=== PATIENT | female | born 1960 | race Caucasian/White ===

== ENCOUNTER 2017-05-06 10:33 | Emergency (ER) | payer SELFPAY ==
[2017-05-06] MEDS ORDERED: MORPHINE SULFATE 5 MG/ML PFS IVP ONE (10:38)
[2017-05-06] MEDS ORDERED: SODIUM CHLORIDE 0.9% 500 ML IV ONE (10:38)
[2017-05-06] MEDS ORDERED: METHYLPREDNISOLONE PF 125MG/VIAL IVP ONE (10:38)
[2017-05-06] MEDS ORDERED: DIAZEPAM 5 MG/1 ML TUBX IVP ONE (10:39)
--- NOTE | 2017-05-06 10:45 | Emergency Department Record ---
History of Present Illness - General Chief Complaint: Back Pain/Injury Stated Complaint: SEVERE BACK PAIN/DIF WALKING Time Seen by Provider: 05/06/17 10:38 Source: Patient, Family Mode of Arrival: Ambulatory Limitations: No limitations - History of Present Illness Initial Comments: 57 yo female with a history of sciatica since July presents with increased low back pain for a week. She reports she fell on black ice then and was treated in [place]. She denies and fractures. She did have and MRI. Three weeks ago she began to have increased pain after travel. The pain has increased this last week. The pain radiates down the left leg mostly in the left thigh. She has pain with any ROM. She denies bowel or bladder symptoms changes. MD Complaint: Back pain, Back injury -: Week(s) Place: Home Radiation: Left leg Severity: Severe Quality: Aching, Sharp Consistency: Constant Improves With: None Worsens With: None Context: Other (History of sciatica) - Related Data Previous Rx's Medication Instructions Recorded Cyclobenzaprine HCl [Flexeril] 10 mg PO TID #30 tablet 05/06/17 Hydrocodone/Acetaminophen [[place] 1 each PO Q8H #18 tablet 05/06/17 5-325 Tablet] Methylprednisolone [Medrol Dose 4 mg PO DAILY #1 tab.ds.pk 05/06/17 Pack] Review of Systems Constitutional: Denies: Chills, Fever, Malaise, Weakness Eyes: Denies: Eye discharge, Eye pain, Photophobia, Vision change ENT: Denies: Congestion, Throat pain Respiratory: Denies: Cough, Dyspnea, Hemoptysis, Stridor, Wheezes Cardiovascular: Denies: Chest pain, Palpitations, Syncope Endocrine: Denies: Fatigue, Polydipsia, Polyuria Gastrointestinal: Denies: Abdominal pain, Diarrhea, Nausea, Vomiting Genitourinary: Denies: Dysuria, Incontinence, Retention Musculoskeletal: Reports: As per HPI, Back pain Skin: Denies: Bruising, Change in color, Rash Neurological: Reports: Abnormal gait, Weakness. Denies: Confusion, Headache, Numbness Psychiatric: Denies: Anxiety Hematological/Lymphatic: Denies: Blood Clots, Easy bleeding, Easy bruising, Swollen glands Physical Exam - General General Appearance: Alert, Oriented x3, Cooperative, No acute distress Limitations: No limitations - Head Head exam: Atraumatic, Normocephalic, Normal inspection - Eye Eye exam: Normal appearance. negative: Conjunctival injection, Periorbital swelling, Scleral icterus - ENT ENT exam: Normal exam, Mucous membranes moist Ear exam: Normal external inspection Nasal Exam: Normal inspection Mouth exam: Normal external inspection - Neck Neck exam: Normal inspection, Full ROM. negative: Tenderness - Respiratory Respiratory exam: Normal lung sounds bilaterally. negative: Respiratory distress, Rhonchi, Stridor, Wheezes - Cardiovascular Cardiovascular Exam: Regular rate, Normal rhythm, Normal heart sounds Peripheral Pulses: 2+: Dorsalis Pedis (L) - GI/Abdominal GI/Abdominal exam: Soft. negative: Tenderness - Rectal Rectal exam: Deferred - exam: Deferred - Extremities Extremities exam: Normal inspection. negative: Calf tenderness, Full ROM (Pain with straight leg raise), Joint swelling, Normal capillary refill, Pedal edema, Tenderness Image of Full Body: 1 - tender to palpation - Back Back exam: Reports: Normal inspection, CVA tenderness (L), Muscle spasm, Paraspinal tenderness, Tenderness, Vertebral tenderness. Denies: Full ROM, Rash noted - Neurological Neurological exam: Alert, Normal gait, Oriented X3, Reflexes normal, Other ( Foot flexion and extension intact, EHL intact, pain wtih leg raise). negative: Altered, Motor sensory deficit - Psychiatric Psychiatric exam: Normal affect, Normal mood - Skin Skin exam: Dry, Intact, Normal color, Warm Course - Reevaluation(s) Reevaluation #1: 05/06/17 10:47 MRI 09/18/16 [facility]: Mild disc disease L4-5, L5-S1 mild to moderate R neural foraminal narrowing, unchanged from prior, No central cantal stenosis with in the canal 05/06/17 11:22 No acute changes on the labs 05/06/17 12:49 On recheck the patient still has pain but she has good range of motion, motor is intact, no neuro clinical finding. She will be sent home with supportive care i recommended follow up with her PCP in [place] as well as pursue a doctor in [place] if she is moving her permanently. Medical Decision Making - Lab Data Result diagrams: 05/06/17 10:56 05/06/17 10:56 Disposition Disposition: Discharge Clinical Impression: Sciatica Qualifiers: Laterality: left Qualified Code(s): M54.32 - Sciatica, left side Disposition: Home, Self-Care Condition: (1) Good Instructions: Sciatica (ED) Additional Instructions: Rest and avoid over exertion Call your doctor in [place] for close follow up until you get a doctor in [place] Return or be seen if worse, weakness, numb, or any new concerns Prescriptions: Cyclobenzaprine HCl [Flexeril] 10 mg PO TID #30 tablet Hydrocodone/Acetaminophen [[place] 5-325 Tablet] 1 each PO Q8H #18 tablet Methylprednisolone [Medrol Dose Pack] 4 mg PO DAILY #1 tab.ds.pk Forms: Patient Portal Access Time of Disposition: 12:53 Quality - Quality Measures Quality Measures: N/A - Blood Pressure Screening Does Patient Have Any of the Following: No Blood Pressure Classification: Hypertensive Reading Systolic Measurement: 146 Diastolic Measurement: 92 Screening for High Blood Pressure: < Pre-Hypertensive BP, F/U Documented > [ G8950] Pre-Hypertensive Follow-up Interventions: Referral to alternative/primary care provider.
[2017-05-06 11:03] LABS: BASO % 0.3 % (0-6); EOS % 1.1 % (0-6); HEMATOCRIT 41.2 % (35.0-47.0); HEMOGLOBIN 14.3 gm/dl (11.6-16.0); LYMPH % 26.6 % (16-45); MEAN CELL VOLUME 90.2 fl (81-97); MEAN CORPUSCULAR HEMOGLOBIN 31.3 pg (27-33); MEAN CORPUSCULAR HGB CONC 34.7 g/dl (32-36); MEAN PLATELET VOLUME 11.2 fl (7.4-10.4); PLATELET COUNT 285 K/uL (130-400); RED BLOOD COUNT 4.57 M/uL (3.80-5.40); RED CELL DISTRIBUTION WIDTH 13.2 % (11.5-14.5); WHITE BLOOD COUNT W/O DIFF 9.2 K/uL (4.2-12.2)
[2017-05-06 11:15] LABS: BLOOD UREA NITROGEN 13 mg/dL (6-20); CREATININE 0.5 mg/dL (0.5-0.9); EST GLOMERULAR FILTRATION RATE > 60 mL/min; GLUCOSE,RANDOM 125 mg/dL (74-109)
[2017-05-06] MEDS ORDERED: ACETAMINOPHEN 1,000 MG/100 ML BTL IVPB ONE (11:39)
== END 2017-05-06 13:29 | disposition home or self-care (01) ==
LOC: ER 10:33
DX: M54.42 Lumbago with sciatica, left side (principal)
CPT/HCPCS: 99284 ×2; 96365; 96375; 85025; 80048; J2270; J2930; J3360

== ENCOUNTER 2017-07-03 13:35 | Emergency (ER) | payer MEDICAID ==
[2017-07-03] MEDS ORDERED: TOPICAL LIDOCAINE W/ EPI 5 ML TOP ONE (13:56)
--- NOTE | 2017-07-03 13:58 | Emergency Department Record ---
History of Present Illness - General Chief complaint: ENT Stated complaint: NOSEBLEED Time Seen by Provider: 07/03/17 13:56 Source: Patient, Family, Old records reviewed Limitations: No limitations - History of Present Illness Initial comments: 57 yo female presents with a nose bleed. The patient developed right nostril bleeding at 7am. The bleeding returned 30 minutes ago. No blood thinners. No history of significant nose bleeds in the past. No other recent illnesses. MD complaint: Epistaxis -: Minutes(s) Severity: Mild Consistency: Intermittent Improves with: None Worsens with: None Context-Epistaxis: Other (No history of the same) - Related Data Home Medications Medication Instructions Recorded Confirmed Last Taken Cholecalciferol (Vitamin D3) 50,000 unit PO WEEKLY 07/03/17 07/03/17 07/01/17 [Vitamin D] Allergies Allergy/AdvReac Type Severity Reaction Status Date / Time No Known Drug Allergies Allergy Verified 07/03/17 14:01 Review of Systems Constitutional: Denies: Chills, Fever, Malaise, Weakness Eyes: Denies: Eye discharge, Eye pain, Photophobia, Vision change ENT: Reports: Epistaxis. Denies: Congestion, Ear pain Respiratory: Denies: Cough, Dyspnea, Hemoptysis, Stridor, Wheezes Cardiovascular: Denies: Chest pain, Palpitations, Syncope Endocrine: Denies: Fatigue Gastrointestinal: Denies: Abdominal pain, Diarrhea, Nausea, Vomiting Genitourinary: Denies: Dysuria, Urgency Musculoskeletal: Denies: Arthralgia, Back pain, Joint swelling, Myalgia Skin: Denies: Bruising, Change in color, Rash Neurological: Denies: Headache, Numbness, Weakness Psychiatric: Denies: Anxiety Hematological/Lymphatic: Denies: Blood Clots, Easy bleeding, Easy bruising, Swollen glands Past Medical History - SOCIAL HISTORY Smoking Status: Never smoker Drug Use: None - RESPIRATORY Hx Respiratory Disorders: No - CARDIOVASCULAR Hx Cardio Disorders: No - NEURO Hx Neuro Disorders: No - GI Hx GI Disorders: No - Hx Genitourinary Disorders: No - ENDOCRINE Hx Endocrine Disorders: No - MUSCULOSKELETAL Hx Musculoskeletal Disorders: Yes Hx Back Injury: Yes - PSYCH Hx Psych Problems: No - HEMATOLOGY/ONCOLOGY Hx Hematology/Oncology Disorders: No Physical Exam - General General Appearance: Alert, Oriented x3, Cooperative, No acute distress Limitations: No limitations - Head Head exam: Normal inspection - Eye Eye exam: Normal appearance. negative: Conjunctival injection, Periorbital swelling, Scleral icterus - ENT ENT exam: Mucous membranes moist. negative: Normal exam Ear exam: Normal external inspection Nasal Exam: Active bleeding, Dried blood. negative: Normal inspection Mouth exam: Normal external inspection Teeth exam: Normal inspection Throat exam: Normal inspection - Neck Neck exam: Normal inspection, Full ROM. negative: Tenderness - Respiratory Respiratory exam: Normal lung sounds bilaterally. negative: Respiratory distress - Cardiovascular Cardiovascular Exam: Regular rate, Normal rhythm, Normal heart sounds - GI/Abdominal GI/Abdominal exam: Soft. negative: Tenderness - Rectal Rectal exam: Deferred - exam: Deferred - Extremities Extremities exam: Normal inspection - Back Back exam: Reports: Normal inspection - Neurological Neurological exam: Alert, Oriented X3. negative: Abnormal gait - Psychiatric Psychiatric exam: Normal affect, Normal mood - Skin Skin exam: Dry, Intact, Normal color, Warm Course - Reevaluation(s) Reevaluation #1: The nose was inspected. Mild ooze in the anterior right septal area. TLE soaked in cotton was placed for hemostasis. 07/03/17 14:20 07/03/17 14:56 The TLE was removed No active bleeding The area of bleeding was identified to the anterior right septum The area was gently cauterized with good results We discussed come care and reasons to return We discussed what to do if she has any rebleed at home Disposition Disposition: Discharge Clinical Impression: Epistaxis Disposition: Home, Self-Care Condition: (1) Good Instructions: Nosebleed (ED) Additional Instructions: REturn to the ER if you have rebleeding that does not stop within 15 minutes of direct pressure. Follow up with your doctor for a recheck after this ER visit Forms: Patient Portal Access Time of Disposition: 14:22 Quality - Quality Measures Quality Measures: N/A - Blood Pressure Screening Does Patient Have Any of the Following: No Blood Pressure Classification: Pre-Hypertensive BP Reading Systolic Measurement: 136 Diastolic Measurement: 69 Screening for High Blood Pressure: < Pre-Hypertensive BP, F/U Documented > [ G8950] Pre-Hypertensive Follow-up Interventions: Referral to alternative/primary care provider.
== END 2017-07-03 15:02 | disposition home or self-care (01) ==
LOC: ER 13:35
DX: R04.0 Epistaxis (principal)
CPT/HCPCS: 30901; 99283

== ENCOUNTER 2017-11-13 08:05 | Emergency (ER) | payer MEDICAID ==
[2017-11-13] MEDS ORDERED: ONDANSETRON HCL IV 4 MG/2 ML VIAL IV ONE (08:38)
[2017-11-13] MEDS ORDERED: 0.9 % SODIUM CHLORIDE 1,000 ML BAG IV ONE (08:38)
[2017-11-13] MEDS ORDERED: MAGNESIUM HYDROXIDE/AL HYDROX 30 ML, LIDOCAINE VISC 2% 200 MG PO ONE ×2 (08:39)
--- NOTE | 2017-11-13 08:49 | Emergency Department Record ---
History of Present Illness - General Chief Complaint: Abdominal Pain Stated Complaint: ABD PAIN Time Seen by Provider: 11/13/17 08:30 Source: Patient Mode of Arrival: Ambulatory Limitations: No limitations - History of Present Illness Initial Comments: The patient is here due to a one day hx of diffuse AP. The pain is sharp and crampy and mostly located in the upper abdomen. She has had nausea and frequent vomiting with the pain but no diarrhea or fever or dysuria. The patient denies any hx of any previous abdominal surgeries. MD Complaint: Abdominal pain Onset/Timin -: Days(s) Location: Diffuse Radiation: None Migration to: No migration Severity: Severe Severity scale (1-10): 10 Quality: Cramping, Sharp Consistency: Constant Improves With: Nothing Worsens With: Nothing Associated Symptoms: Nausea, Vomiting - Related Data Patient : No Home Medications Medication Instructions Recorded Confirmed Last Taken Meloxicam 7.5 mg PO QHS 11/13/17 11/13/17 11/12/17 Previous Rx's Medication Instructions Recorded Ondansetron [Zofran Odt] 4 mg SL .Q4-6H PRN #12 tab.rapdis 11/13/17 Sucralfate [Carafate] 1 gm PO QID #28 tablet 11/13/17 Allergies Allergy/AdvReac Type Severity Reaction Status Date / Time ibuprofen [From Motrin] AdvReac ITCHING Verified 11/13/17 08:21 Travel Screening - Travel/Exposure Within Last 30 Days Have you traveled within the last 30 days?: No Review of Systems Constitutional: Denies: Chills, Fever Eyes: Denies: Eye discharge ENT: Denies: Congestion Respiratory: Denies: Cough, Dyspnea Past Medical History - SOCIAL HISTORY Smoking Status: Never smoker Alcohol Use: Rare Drug Use: None - RESPIRATORY Hx Respiratory Disorders: No - CARDIOVASCULAR Hx Cardio Disorders: No - NEURO Hx Neuro Disorders: No - GI Hx GI Disorders: No - Hx Genitourinary Disorders: No - ENDOCRINE Hx Endocrine Disorders: No - MUSCULOSKELETAL Hx Musculoskeletal Disorders: Yes Hx Back Injury: Yes - PSYCH Hx Psych Problems: No - HEMATOLOGY/ONCOLOGY Hx Hematology/Oncology Disorders: No Family Medical History Any Significant Family History?: No Physical Exam - General General Appearance: Alert, Oriented x3, Cooperative, No acute distress - Head Head exam: Atraumatic, Normocephalic, Normal inspection - Eye Eye exam: Normal appearance, PERRL - Neck Neck exam: Normal inspection, Full ROM. negative: Tenderness - Respiratory Respiratory exam: Normal lung sounds bilaterally. negative: Respiratory distress - Cardiovascular Cardiovascular Exam: Regular rate, Normal rhythm, Normal heart sounds - GI/Abdominal GI/Abdominal exam: Soft, Normal bowel sounds, Tenderness (There is diffuse abdominal tenderness greatest in the upper abdomen.). negative: Guarding, Pulsatile mass, Rebound, Rigid - Extremities Extremities exam: Normal inspection, Full ROM, Normal capillary refill. negative: Tenderness - Back Back exam: Reports: Normal inspection - Neurological Neurological exam: Alert, Normal gait. negative: Abnormal gait, Motor sensory deficit Course Vital Signs 11/13/17 08:23 Temperature 98.4 F Pulse Rate [ 89 Pulse Ox Probe] Respiratory 20 Rate Blood Pressure 121/75 [Left Arm] Pulse Ox 94 L - Reevaluation(s) Reevaluation #1: The patient is doing a lot better at this time. Her pain is much improved and she is resting comfortably. 11/13/17 09:24 Reevaluation #2: The patient is doing a lot better at this time. The pain has resolved and her abdomen is very soft and nontender in all 4 quads. 11/13/17 09:41 Reevaluation #3: The patient is doing very well at this time. Her pain has resolved and she denies any nausea, or vomiting. On exam the abdomen is very soft with no significant tenderness in all 4 quads. I did explain to the patient that her lab tests and US were WNL's. We will have her take Tylenol and hold the NSAID and F/U with GI next week. 11/13/17 10:57 Medical Decision Making - Data Complexity MDM Data: Labs Ordered and/or Reviewed, X-Ray Ordered and/or Reviewed - Lab Data Result diagrams: 11/13/17 08:20 11/13/17 08:20 - Radiology Data Radiology results: Report reviewed (US: Fatty liver and 6 mm GB polyp, O/W neg.) Disposition Disposition: Discharge Clinical Impression: Abdominal pain Qualifiers: Abdominal location: unspecified location Qualified Code(s): R10.9 - Unspecified abdominal pain Disposition: Home, Self-Care Condition: (2) Stable Instructions: Abdominal Pain (ED) Additional Instructions: Off work today and eat a very bland diet and do not drink alcohol. Take the Carafate as directed and use Tylenol for pain instead of the Meloxicam. Please follow up with [facility] as planned and return to the ER for any worsening symptoms. Prescriptions: Ondansetron [Zofran Odt] 4 mg SL .Q4-6H PRN #12 tab.rapdis PRN Reason: Nausea Sucralfate [Carafate] 1 gm PO QID #28 tablet Referrals: [facility] [Provider Group] Forms: Patient Portal Access Time of Disposition: 10:59 Quality - Quality Measures Quality Measures: N/A - Blood Pressure Screening View Details: Yes Does Patient Have Any of the Following: No Blood Pressure Classification: Pre-Hypertensive BP Reading Systolic Measurement: 126 Diastolic Measurement: 83 Screening for High Blood Pressure: < Pre-Hypertensive BP, F/U Documented > [ G8950] Pre-Hypertensive Follow-up Interventions: Referral to alternative/primary care provider.
[2017-11-13 08:58] LABS: HEMATOCRIT 43.4 % (35.0-47.0); HEMOGLOBIN 14.4 gm/dl (11.6-16.0); MEAN CELL VOLUME 93.3 fl (81-97); MEAN CORPUSCULAR HGB CONC 33.2 g/dl (32-36); MEAN PLATELET VOLUME 10.9 fl (7.4-10.4); PLATELET COUNT 251 K/uL (130-400); RED BLOOD COUNT 4.65 M/uL (3.80-5.40); RED CELL DISTRIBUTION WIDTH 13.9 % (11.5-14.5); WHITE BLOOD COUNT W/O DIFF 8.8 K/uL (4.2-12.2)
[2017-11-13 09:09] LABS: BLOOD UREA NITROGEN 17 mg/dL (6-20); CREATININE 0.7 mg/dL (0.5-0.9); EST GLOMERULAR FILTRATION RATE > 60 mL/min
[2017-11-13 09:10] LABS: TOTAL PROTEIN 7.3 g/dL (6.6-8.7)
[2017-11-13 09:12] LABS: GLUCOSE,RANDOM 142 mg/dL (74-109)
[2017-11-13 09:14] LABS: ALT/SGPT 16 U/L (<33)
[2017-11-13 09:15] LABS: ALBUMIN 4.3 g/dL (4.0-5.0); ALKALINE PHOSPHATASE 76 U/L (35-104); AST/SGOT 17 U/L (10.0-35.0); LIPASE 23 U/L (13-60)
[2017-11-13 09:18] LABS: BILIRUBIN,DIRECT < 0.2 mg/dL (0-0.3)
[2017-11-13] MEDS ORDERED: SUCRALFATE 1 G/10 ML UD PO ONE (09:22)
[2017-11-13 09:48] LABS: URINE APPEARANCE CLEAR; URINE BILIRUBIN NEGATIVE (NEGATIVE); URINE BLOOD TRACE-I (NEGATIVE); URINE COLOR YELLOW; URINE GLUCOSE (UA) NEGATIVE (NEGATIVE); URINE KETONE NEGATIVE (NEGATIVE); URINE LEUKOCYTE ESTERASE NEGATIVE (NEGATIVE); URINE NITRITE NEGATIVE (NEGATIVE); URINE PROTEIN NEGATIVE (NEGATIVE); URINE UROBILINOGEN 0.2 E.U./dL (0.20 - 1.00)
[2017-11-13 10:01] LABS: URINE WBC 0 - 2 (0-2/hpf)
--- NOTE | 2017-11-14 15:41 | ULTRASOUND REPORT ---
EXAM: ULTRASOUND ABDOMEN, COMPLETE HISTORY: VOMITING. TECHNIQUE: Complete transabdominal ultrasound. COMPARISON: None. FINDINGS: Echogenic appearance to the liver consistent with fatty infiltrative change. No focal liver lesions. There is a 6 mm nonshadowing, nonmobile focus adherent to the gallbladder wall, which could relate to polyp or nonmobile stone , which is felt less likely. Negative sonographic Tilley sign. No pericholecystic fluid. The CBD measures 4.6 mm. The visualized portions of the pancreas are unremarkable. Spleen is unremarkable at 8 cm. The right kidney measures 10 x 4 cm, the left 10 x 5 cm. No renal calculus, mass, or hydronephrosis. The visualized abdominal aorta and inferior vena cava are unremarkable. No free fluid. IMPRESSION: 1. DIFFUSE FATTY INFILTRATIVE CHANGE TO THE LIVER. 2. PROBABLE SMALL GALLBLADDER POLYP. JOB NUMBER: [id number] MTDD
== END 2017-11-13 11:13 | disposition home or self-care (01) ==
LOC: ER 08:05
DX: R10.10 Upper abdominal pain, unspecified (principal); R11.2 Nausea with vomiting, unspecified; R53.1 Weakness
CPT/HCPCS: 99284 ×2; 96374; 96361; 83690; 80076; 80048; 81001; 85027; 76700; J2405; J7030